=== PATIENT | male | born 1980 | race Caucasian/White ===

== ENCOUNTER 2022-02-05 20:14 | Inpatient (IN) | payer OTHER, BC ==
[2022-02-05] MEDS ORDERED: Ketamine 50 MG/ML (10ML VIAL) ONE (20:20)
[2022-02-05] MEDS ORDERED: Morphine 4 MG/ML VIAL ONE (20:20)
[2022-02-05] MEDS ORDERED: CEFAZOLIN 2 GM VIAL ONE ×2 (20:21→21:31)
[2022-02-05] MEDS ORDERED: Boostrix 0.5 ML (Tdap) VIAL (>/=7 yrs of age) ONE (20:21)
[2022-02-05 20:39] LABS: #Basophils 0.1 thou/uL (0.0-0.2); #Eosinphils 0.5 thou/uL (0.0-0.7); #Lymphocytes 3.9 thou/uL (1.20-3.40); #Monocytes 1.2 thou/uL (0.11-0.59); #Neutrophils 6.6 thou/uL (1.40-6.50); %Basophils 0.8 % (0.0-1.0); %Eosinophils 3.7 % (0.0-10.0); %Lymphocytes 31.6 % (21.0-51.0); %Neutrophils 53.8 % (42.0-75.0); Hemoglobin 16.8 g/dL (14.0-18.0); Mean Corpuscular HGB CONC 32.9 g/dL (32.0-36.0); Mean Corpuscular Hemoglobin 31.4 pg (27.0-31.0); Mean Corpuscular Volume 95.5 fl (78.0-98.0); Mean Platelet Volume 11.3 fL (7.4-10.4); Platelet Count 154 thou/uL (130-400); RBC Distribution Width 11.6 % (11.5-14.5); Red Blood Cell (RBC) Count 5.35 mill/uL (4.70-6.10); White Blood Cell (WBC) Count 12.2 thou/uL (4.8-10.8)
[2022-02-05 21:02] LABS: ALT (SGPT) 31 U/L (8-55); AST (SGOT) 25 U/L (5-34); Albumin 3.9 g/dL (3.5-5.0); Alcohol Less than 10 mg/dL (Less than 10); Alkaline Phosphatase 71 U/L (40-110); Anion Gap 16 mmol/L (10-20); BUN (Urea Nitrogen) 12 mg/dL (8.9-20.6); Bilirubin, Total 0.8 mg/dL (0.2-1.2); Calc. Creatinine Clearance 0 mL/min (70-130); Carbon Dioxide 19 mmol/L (22-29); Chloride 110 mmol/L (98-107); Estimated GFR 87; Globulin 3.2 g/dL (2.4-3.5); Glucose 120 mg/dL (70-105); Protein, Total 7.1 g/dL (6.0-8.3); Sodium 141 mmol/L (136-145)
[2022-02-05] MEDS ORDERED: Cyclobenzaprine 10 MG TAB PO PRN (21:20)
[2022-02-05] MEDS ORDERED: traMADol HCl 50 MG TAB PO PRN (21:20)
[2022-02-05] MEDS ORDERED: Ondansetron PF 4 MG/2 ML Vial IVP PRN (21:21)
[2022-02-05] MEDS ORDERED: TETANUS, DIPHTHERIA TOX,ADULT (TDVAX) 0.5 ML VIAL IM ONE (21:21)
[2022-02-05] MEDS ORDERED: Midazolam HCl 2 mg/2 ml Vial ONE (21:22)
[2022-02-05] MEDS ORDERED: fentaNYL Citrate/PF 100 MCG/2 ML SYRINGE ONE (21:22)
[2022-02-05] MEDS ORDERED: HYDROmorphone 0.5 MG/0.5 ML SYRINGE ONE (21:26)
[2022-02-05] MEDS ORDERED: Bacitracin Zinc Ointment 30 gm TUBE ONE (21:27)
[2022-02-05] MEDS ORDERED: Morphine 4 MG/ML VIAL SLOW IVP PRN (21:27)
[2022-02-05] MEDS ORDERED: Neomycin-Polymyxin 1 ML AMP ONE (21:27)
[2022-02-05] MEDS ORDERED: Acetaminophen 500 MG TAB PO SCH (21:30)
[2022-02-05] MEDS ORDERED: Ketorolac Tromethamine 30 MG/ML VIAL IVP SCH (21:30)
[2022-02-05] MEDS ORDERED: Sodium Chloride 0.9% 100 ML ONE (21:31)
[2022-02-05] MEDS ORDERED: Succinylcholine 200 MG/10 ml SYRINGE FS ONE (21:48)
[2022-02-05] MEDS ORDERED: Ondansetron PF 4 MG/2 ML Vial ONE (21:48)
[2022-02-05] MEDS ORDERED: Dexamethasone 20 MG/5 ML VIAL ONE (21:48)
[2022-02-05] MEDS ORDERED: PROPOFOL 200 MG/20 ML VIAL ONE (21:48)
[2022-02-05] MEDS ORDERED: Promethazine HCl 25 MG/ML VIAL IVPB PRN (22:31)
[2022-02-05] MEDS ORDERED: Ondansetron HCl/PF 4 MG/2 ML Vial IVP PRN (22:31)
[2022-02-05] MEDS ORDERED: Promethazine HCl 25 MG/ML VIAL IM PRN (22:31)
[2022-02-05] MEDS ORDERED: HYDROmorphone 2 MG/ML VIAL SLOW IVP PRN (22:31)
[2022-02-05] MEDS ORDERED: FENTANYL 50 MCG/ML VIAL 50 MCG/ML VIAL ONE ×3 (23:20→23:53)
[2022-02-06 00:49] VITALS: BMI 32.3
[2022-02-06] MEDS: traMADol HCl 50 MG TAB PO SCH ×5 (00:52→23:22)
[2022-02-06] MEDS: Sodium Chloride 0.9% 1,000 ML IV SCH ×2 (00:53→09:54)
[2022-02-06 02:55] LABS: SARS-CoV-2 NAA Rapid Test Not Detected (NotDetected)
[2022-02-06] MEDS: Acetaminophen 500 MG TAB PO SCH ×2 (05:16→11:49)
[2022-02-06] MEDS: CEFAZOLIN 2 GM in Sodium Chloride 0.9% 100 ML IVPB SCH ×2 (05:16→13:46)
[2022-02-06 05:35] LABS: #Lymphocytes 0.8 thou/uL (1.20-3.40); #Monocytes 0.6 thou/uL (0.11-0.59); #Neutrophils 12.9 thou/uL (1.40-6.50); %Basophils 0.1 % (0.0-1.0); %Eosinophils 0.1 % (0.0-10.0); %Lymphocytes 5.3 % (21.0-51.0); %Monocytes 4.2 % (0.0-10.0); %Neutrophils 90.3 % (42.0-75.0); Mean Corpuscular HGB CONC 32.3 g/dL (32.0-36.0); Mean Corpuscular Hemoglobin 31.5 pg (27.0-31.0); Mean Corpuscular Volume 97.4 fl (78.0-98.0); Mean Platelet Volume 11.6 fL (7.4-10.4); Platelet Count 126 thou/uL (130-400); RBC Distribution Width 11.6 % (11.5-14.5); Red Blood Cell (RBC) Count 4.77 mill/uL (4.70-6.10); White Blood Cell (WBC) Count 14.3 thou/uL (4.8-10.8)
[2022-02-06 05:38] LABS: Phosphorus 2.6 mg/dL (2.3-4.7)
[2022-02-06 05:43] LABS: Anion Gap 12 mmol/L (10-20); BUN (Urea Nitrogen) 11 mg/dL (8.9-20.6); Calc. Creatinine Clearance 107 mL/min (70-130); Calcium 8.6 mg/dL (7.8-10.44); Carbon Dioxide 26 mmol/L (22-29); Chloride 105 mmol/L (98-107); Estimated GFR 80; Glucose 200 mg/dL (70-105); Magnesium 1.7 mg/dL (1.6-2.6); Potassium 4.7 mmol/L (3.5-5.1); Sodium 138 mmol/L (136-145)
[2022-02-06] MEDS ORDERED: traMADol HCl 50 MG TAB PO SCH (06:00)
[2022-02-06] MEDS ORDERED: Ketorolac Tromethamine 30 MG/ML VIAL IVP SCH (06:00)
[2022-02-06] MEDS ORDERED: CEFAZOLIN 1 GM in Sodium Chloride 0.9% 100 ML IVPB SCH (06:00)
[2022-02-06] MEDS: Senokot S 8.6-50 MG TAB PO SCH ×2 (09:50→20:46)
[2022-02-06] MEDS: Famotidine 20 MG TAB PO SCH ×2 (09:50→20:46)
[2022-02-06] MEDS: Polyethylene Glycol 3350 17 GM Packet PO SCH (09:51)
[2022-02-06] MEDS: Ibuprofen 200 MG TAB PO SCH ×2 (09:51→16:15)
[2022-02-06] MEDS: Cyclobenzaprine 10 MG TAB PO PRN ×2 (13:04→20:45)
[2022-02-06] MEDS: Acetaminophen/Codeine 30-300mg Tablet PO SCH ×2 (17:09→23:23)
[2022-02-07] MEDS: Ibuprofen 200 MG TAB PO SCH ×2 (00:01→09:07)
[2022-02-07] MEDS: Acetaminophen/Codeine 30-300mg Tablet PO SCH ×4 (05:38→23:14)
[2022-02-07] MEDS: traMADol HCl 50 MG TAB PO SCH ×4 (05:38→23:14)
[2022-02-07] MEDS ORDERED: METHYLPHENIDATE HCL 36 MG PO SCH (09:00)
[2022-02-07] MEDS: Cyclobenzaprine 10 MG TAB PO PRN (09:05)
[2022-02-07] MEDS: Famotidine 20 MG TAB PO SCH ×2 (09:07→20:09)
[2022-02-07] MEDS: Senokot S 8.6-50 MG TAB PO SCH ×2 (09:07→20:09)
[2022-02-07] MEDS: Polyethylene Glycol 3350 17 GM Packet PO SCH (09:27)
[2022-02-07] MEDS: Morphine 4 MG/ML VIAL SLOW IVP PRN ×3 (10:20→21:15)
[2022-02-07] MEDS: Ketorolac Tromethamine 30 MG/ML VIAL IVP SCH ×3 (12:13→23:15)
[2022-02-07] MEDS ORDERED: CEFAZOLIN 2 GM in Sodium Chloride 0.9% 100 ML IVPB SCH (15:15)
[2022-02-08 05:39] LABS: #Basophils 0.1 thou/uL (0.0-0.2); #Eosinphils 0.5 thou/uL (0.0-0.7); #Lymphocytes 1.9 thou/uL (1.20-3.40); #Monocytes 1.2 thou/uL (0.11-0.59); #Neutrophils 5.3 thou/uL (1.40-6.50); %Basophils 0.6 % (0.0-1.0); %Eosinophils 5.8 % (0.0-10.0); %Lymphocytes 20.9 % (21.0-51.0); %Monocytes 13.1 % (0.0-10.0); %Neutrophils 59.7 % (42.0-75.0); Hemoglobin 13.3 g/dL (14.0-18.0); Mean Corpuscular Hemoglobin 31.2 pg (27.0-31.0); Mean Corpuscular Volume 97.6 fl (78.0-98.0); Mean Platelet Volume 11.5 fL (7.4-10.4); Platelet Count 100 thou/uL (130-400); RBC Distribution Width 11.6 % (11.5-14.5); Red Blood Cell (RBC) Count 4.26 mill/uL (4.70-6.10); White Blood Cell (WBC) Count 8.9 thou/uL (4.8-10.8)
[2022-02-08] MEDS: Ketorolac Tromethamine 30 MG/ML VIAL IVP SCH (05:42)
[2022-02-08] MEDS: traMADol HCl 50 MG TAB PO SCH ×4 (05:43→23:12)
[2022-02-08] MEDS: Acetaminophen/Codeine 30-300mg Tablet PO SCH ×4 (05:43→23:12)
[2022-02-08 06:22] LABS: Anion Gap 9 mmol/L (10-20); BUN (Urea Nitrogen) 12 mg/dL (8.9-20.6); Calc. Creatinine Clearance 125 mL/min (70-130); Calcium 8.9 mg/dL (7.8-10.44); Carbon Dioxide 30 mmol/L (22-29); Chloride 105 mmol/L (98-107); Estimated GFR 97; Glucose 101 mg/dL (70-105); Sodium 140 mmol/L (136-145)
[2022-02-08] MEDS ORDERED: Midazolam HCl 2 mg/2 ml Vial ONE (07:10)
[2022-02-08] MEDS ORDERED: Lidocaine 2% 6 ML SYR ONE (07:11)
[2022-02-08] MEDS ORDERED: fentaNYL Citrate/PF 100 MCG/2 ML SYRINGE ONE ×2 (07:11→11:17)
[2022-02-08] MEDS ORDERED: CEFAZOLIN 2 GM VIAL ONE (08:02)
[2022-02-08] MEDS ORDERED: Sodium Chloride 0.9% 100 ML ONE (08:02)
[2022-02-08] MEDS ORDERED: Dexamethasone 20 MG/5 ML VIAL ONE (08:15)
[2022-02-08] MEDS ORDERED: Ondansetron PF 4 MG/2 ML Vial ONE (08:15)
[2022-02-08] MEDS ORDERED: PROPOFOL 200 MG/20 ML VIAL ONE (08:15)
[2022-02-08] MEDS ORDERED: Ketorolac Tromethamine 30 MG/ML VIAL ONE (08:15)
[2022-02-08] MEDS: Famotidine 20 MG TAB PO SCH ×2 (08:34→20:09)
[2022-02-08] MEDS: Senokot S 8.6-50 MG TAB PO SCH ×2 (08:34→20:09)
[2022-02-08] MEDS: Polyethylene Glycol 3350 17 GM Packet PO SCH (08:34)
[2022-02-08] MEDS ORDERED: Bupivacaine HCl 0.5%/Epinephrine 1:200,000/PF 30 ml Vial ONE (08:49)
[2022-02-08] MEDS: Gabapentin 300 MG CAP PO SCH ×3 (09:12→20:08)
[2022-02-08] MEDS ORDERED: HYDROmorphone 2 MG/ML VIAL ONE (10:22)
[2022-02-08] MEDS ORDERED: Ondansetron HCl/PF 4 MG/2 ML Vial IVP PRN (10:46)
[2022-02-08] MEDS ORDERED: Promethazine HCl 25 MG/ML VIAL IVPB PRN (10:46)
[2022-02-08] MEDS ORDERED: Promethazine HCl 25 MG/ML VIAL IM PRN (10:46)
[2022-02-08] MEDS ORDERED: Meperidine HCl/PF 25 MG/ML VIAL SLOW IVP PRN (10:46)
[2022-02-08] MEDS ORDERED: HYDROmorphone 2 MG/ML VIAL SLOW IVP PRN (10:46)
[2022-02-08] MEDS ORDERED: Labetalol HCl 100 MG/20 ML VIAL ONE (11:24)
[2022-02-08] MEDS ORDERED: FENTANYL 50 MCG/ML VIAL 50 MCG/ML VIAL ONE ×2 (11:36→11:59)
[2022-02-08] MEDS: Cyclobenzaprine 10 MG TAB PO PRN (13:21)
[2022-02-08] MEDS: CEFAZOLIN 2 GM in Sodium Chloride 0.9% 100 ML IVPB SCH ×2 (17:05→23:13)
[2022-02-08] MEDS ORDERED: Ibuprofen 200 MG TAB PO PRN (18:44)
[2022-02-09] MEDS: Acetaminophen/Codeine 30-300mg Tablet PO SCH ×2 (05:21→12:07)
[2022-02-09] MEDS: traMADol HCl 50 MG TAB PO SCH ×2 (05:22→10:53)
[2022-02-09 06:18] LABS: #Lymphocytes 1.2 thou/uL (1.20-3.40); #Monocytes 1.3 thou/uL (0.11-0.59); #Neutrophils 11.7 thou/uL (1.40-6.50); %Basophils 0.1 % (0.0-1.0); %Eosinophils 0.2 % (0.0-10.0); %Lymphocytes 8.7 % (21.0-51.0); %Monocytes 9.3 % (0.0-10.0); %Neutrophils 81.8 % (42.0-75.0); Hemoglobin 12.1 g/dL (14.0-18.0); Mean Corpuscular HGB CONC 31.1 g/dL (32.0-36.0); Mean Corpuscular Hemoglobin 30.2 pg (27.0-31.0); Mean Corpuscular Volume 97.2 fl (78.0-98.0); Mean Platelet Volume 11.9 fL (7.4-10.4); Platelet Count 110 thou/uL (130-400); RBC Distribution Width 11.5 % (11.5-14.5); Red Blood Cell (RBC) Count 4.01 mill/uL (4.70-6.10); White Blood Cell (WBC) Count 14.3 thou/uL (4.8-10.8)
[2022-02-09 06:23] LABS: Anion Gap 12 mmol/L (10-20); BUN (Urea Nitrogen) 9 mg/dL (8.9-20.6); Calc. Creatinine Clearance 124 mL/min (70-130); Calcium 8.5 mg/dL (7.8-10.44); Carbon Dioxide 28 mmol/L (22-29); Chloride 104 mmol/L (98-107); Estimated GFR 96; Glucose 145 mg/dL (70-105); Magnesium 1.9 mg/dL (1.6-2.6); Phosphorus 2.5 mg/dL (2.3-4.7); Potassium 3.8 mmol/L (3.5-5.1); Sodium 140 mmol/L (136-145)
[2022-02-09 07:36] VITALS: TEMP 98.7
[2022-02-09] MEDS ORDERED: Enoxaparin Sodium 40 MG/0.4 ML SYRINGE SC SCH (09:00)
[2022-02-09] MEDS ORDERED: FLU VACC QS2022-23(6MOS UP)/PF 60 MCG/0.5 ML SYRINGE IM ONE (09:00)
[2022-02-09] MEDS: CEFAZOLIN 2 GM in Sodium Chloride 0.9% 100 ML IVPB SCH (09:13)
[2022-02-09] MEDS: Famotidine 20 MG TAB PO SCH (09:14)
[2022-02-09] MEDS: Gabapentin 300 MG CAP PO SCH ×2 (09:14→15:00)
[2022-02-09] MEDS: Senokot S 8.6-50 MG TAB PO SCH (09:15)
[2022-02-09] MEDS: Polyethylene Glycol 3350 17 GM Packet PO SCH (09:15)
[2022-02-09] MEDS: Cyclobenzaprine 10 MG TAB PO PRN (10:53)
[2022-02-09 11:53] VITALS: BP 154/85
[2022-02-09] MEDS ORDERED: CEFAZOLIN 2 GM in Sodium Chloride 0.9% 100 ML IVPB SCH (16:00)
== END 2022-02-09 15:51 | disposition home or self-care (01) | DRG 493 ==
LOC: ERS 20:14 → SURG A 21:21
PROVIDERS: ADMIT Physician Assistant Medical; ATTEND Surgery
PROC: 0SSF0ZZ Reposition Right Ankle Joint, Open Approach (ICD-10-PCS; principal; 2022-02-05)
PROC: 0SBF0ZZ Excision of Right Ankle Joint, Open Approach (ICD-10-PCS; 2022-02-05)
PROC: 0QSG04Z Reposition Right Tibia with Internal Fixation Device, Open Approach (ICD-10-PCS; 2022-02-08)
DX: S93.04XA Dislocation of right ankle joint, initial encounter (principal); S82.141A Displaced bicondylar fracture of right tibia, initial encounter for closed fracture; Z20.822 Contact with and (suspected) exposure to COVID-19; V85.5XXA Driver of special construction vehicle injured in nontraffic accident, initial encounter; D69.6 Thrombocytopenia, unspecified; E83.42 Hypomagnesemia
CPT/HCPCS: 36415; 71045; 72170; 76377; 80048; 80053; 80307; 83735; 84100; 85025; 86850; 86900; 86901; 90715; 93005; 94660; C1713; G0390; J1100; J1170; J1650; J1885; J2250; J2270; J2405; J2704; J3010; J3490; J7050; U0002